=== PATIENT | male | born 1980 | race Caucasian/White ===

== ENCOUNTER → 2020-08-05 08:36 | Outpatient (CLI) | payer OTHER, SELFPAY ==
[2020-08-06 16:58] LABS: COVID19 Sendout Not Detected (Not Detect)
== END ==
PROVIDERS: Visit Provider Physician Assistant
DX: Z11.59 Encounter for screening for other viral diseases (principal)
CPT/HCPCS: 87635

== ENCOUNTER 2020-11-22 00:40 | Emergency (ER) | payer OTHER, SELFPAY ==
[2020-11-22 00:49] VITALS: BP 152/100; PULSE 56; RESP 17; TEMP 36.9; O2SAT 98; BMI 22.1
--- NOTE | 2020-11-22 01:08 | ED.HA ---
HPI - Headache General Chief Complaint: Headache Stated Complaint: hit head - pain for one week Time Seen by Provider: 11/22/20 00:48 Source: patient Mode of arrival: Ambulatory Limitations: no limitations History of Present Illness HPI Narrative: 40-year-old male who 1 week ago hit the right side of his head on a metal track of a garage door. He did not lose consciousness however did caused him to come dazed. Since that time his had worsening pain on the right side of his head. Has not tried anything for symptoms prior to arrival. Review of Systems Constitutional Constitutional: Denies fever(s) and Reports headache(s) Eyes Eyes: Denies change in vision ENT Ears, Nose, Mouth, and Throat: Denies vertigo, Denies dizziness, Denies otalgia, Reports headache(s), Denies neck pain and Denies sore throat Cardiovascular Cardiovascular: Denies chest pain and Denies dyspnea Respiratory Respiratory: Denies dyspnea Musculoskeletal Musculoskeletal: Denies neck pain Integumentary/Breasts Skin/Breast: Denies rash Neurologic Neurologic: Denies confusion, Denies vertigo, Denies dizziness and Reports headache(s) Psychiatric Psychiatric: Denies confusion Hematologic/Lymphatic On Anticoagulants: No Allergic/Immunologic Allergic/Immunologic: Denies urticaria Patient History Medical History Healthy adult Social History Smoking Status: Current every day smoker Smoking Status: Current every day smoker Substance Use Type: marijuana Exam Initial Vital Signs Initial Vital Signs: Vital Signs Temperature 98.5 F 11/22/20 00:49 Pulse Rate 56 L 11/22/20 00:49 Respiratory Rate 17 11/22/20 00:49 Blood Pressure 152/100 H 11/22/20 00:49 Pulse Oximetry 98 11/22/20 00:49 Const General: cooperative and comfortable Limitations: mental status not altered HENMT Head: normal to inspection and normocephalic Ears: external ears normal, TM's normal bilaterally, EAC's normal and mastoids normal Nose: external nose normal Face and sinus: normal facial exam Mouth: oral mucosae normal Teeth and gingiva: poor dentition Skin Lesions: no lesions Rashes: no rashes Neuro General: patient alert and patient awake Cognition: normal cognition Speech: speech normal Extrem General: capillary refill normal Psych Appearance: grossly normal and well kempt Course Vital Signs Vital signs: Vital Signs - 8 hr 11/22/20 00:49 11/22/20 01:23 Temperature 98.5 F Pulse Rate 56 L 58 L Respiratory Rate 17 17 Blood Pressure 152/100 H 148/99 H Pulse Oximetry 98 99 MDM - Headache MDM Narrative Medical decision making narrative: Patient's physical exam is unremarkable. Afebrile. Low suspicion for intracranial bleed or skull fracture. Discussed this with the patient. We did discuss the can take Tylenol at home which he states he does not like to do. He has no restrictions on his activity. He is given return precautions. He expressed understanding and agreement. Discharge Plan Departure Patient Disposition: Home Clinical Impression: Headache, Closed head injury, Concussion Instructions: Concussion Activity Restrictions/Additional Instructions: I do recommend that you take Tylenol and/or ibuprofen as needed for any headache. Contact your primary provider for follow-up. Return to the emergency department for any new or worsening symptoms Referrals: Miscellaneous,[facility] [Primary Care Provider] -
[2020-11-22 01:23] VITALS: BP 148/99; PULSE 58; RESP 17; O2SAT 99
== END 2020-11-22 01:24 | disposition home or self-care (01) ==
PROVIDERS: Emergency Provider Emergency Medicine
DX: S06.0X0A Concussion without loss of consciousness, initial encounter (principal); R51.9 Headache, unspecified; W22.8XXA Striking against or struck by other objects, initial encounter; Y99.0 Civilian activity done for income or pay
CPT/HCPCS: 99281

== ENCOUNTER 2021-04-03 12:46 | Emergency (ER) | payer SELFPAY ==
--- NOTE | 2021-04-03 12:59 | ED_ITS ---
HPI - Dental/Oral General Chief complaint: Dental/Oral Stated complaint: gland so swollen touching jaw bone, cyst on chin Time Seen by Provider: 04/03/21 12:51 Source: patient Mode of arrival: Ambulatory Limitations: no limitations History of Present Illness HPI Narrative: 40-year-old male smoker with no significant medical history presents with a chief complaint of a painful ?bump ?under the from this [place] and another under that left angle of his jaw. He states has been there for the past few days and are tender to palpate. He denies any fever or chills. He denies recent upper respiratory infection such as runny nose, sore throat or cough. He denies any difficulty swelling. He denies any obvious dental problem, draining abscess or tooth pain. He denies any trauma or injury. He denies other symptoms such as dizziness, weakness or lightheadedness. He is otherwise well and free of complaint Onset (ago): day(s) Duration: constant Relieving factors: nothing Treatment prior to arrival: none Related Data Previous Rx's Medication Instructions Recorded amoxicillin-pot clavulanate 1 tab PO BID #20 tab 04/03/21 [Augmentin] Review of Systems Constitutional Constitutional: Denies chills, Denies fatigue, Denies fever(s), Denies frequent falls, Denies lethargy and Denies weakness Eyes Eyes: Denies change in vision, Denies eye discharge, Denies irritation and Denies loss of vision ENT Ears, Nose, Mouth, and Throat: Denies change in voice, Denies dizziness, Denies neck pain, Denies sore throat and Denies throat swelling Cardiovascular Cardiovascular: Denies chest pain, Denies irregular heart rhythm, Denies lightheadedness, Denies palpitations, Denies dyspnea, Denies dyspnea on exertion and Denies orthopnea Respiratory Respiratory: Denies cough, Denies dyspnea, Denies dyspnea on exertion and Denies wheezing Gastrointestinal Gastrointestinal: Denies abdominal pain, Denies change in bowel habits, Denies diarrhea, Denies nausea and Denies vomiting Musculoskeletal Musculoskeletal: Denies neck pain and Denies numbness Integumentary/Breasts Skin/Breast: Denies pruritus, Denies erythema, Denies rash and Denies wounds Neurologic Neurologic: Denies behavioral changes, Denies confusion, Denies dizziness, Denies frequent falls, Denies loss of vision, Denies numbness and Denies weakness Psychiatric Psychiatric: Denies anxiety, Denies behavioral changes, Denies confusion, Denies depression, Denies homicidal ideation and Denies suicidal ideation Endocrine Endocrine: Denies fatigue, Denies flushing and Denies palpitations Hematologic/Lymphatic Hematologic/Lymphatic: Denies easy bruising and Reports lymphadenopathy Allergic/Immunologic Allergic/Immunologic: Denies urticaria, Denies throat swelling and Denies wheezing Patient History Medical History Healthy adult Social History Smoking Status: Current every day smoker Smoking Status: Current every day smoker Substance Use Type: marijuana Exam Narrative Exam Narrative: GEN: AOx3 and in mild distress EYES: Pupils are equal, round, and reactive to light and accommodation. Extraoccular muscles are intact bilaterally. There is no subconjunctival hemorrhage or exudate. ENT: Poor dentition throughout, no obvious dental fracture, reproducible pain or swelling to suggest abscess. There is a tender node versus submental as gland in the midline anteriorly as well as a tender anterior cervical lymph node versus salivary gland at that inferior edge of left angle of jaw. There is no fluctuance, erythema or warmth. It is freely movable and approximately 1 x 1 cm. CHEST: Lungs are clear to auscultation bilaterally and free of wheezes, rales, or rhonchi. Heart rate is regular rhythm, there are no murmurs, clicks, rubs, or gallops. There is no chest wall tenderness. ABD: Abdomen is soft and nontender. There is no guarding or rebound. Bowel sounds are normal in all 4 quadrants. There is no mass or organomegaly. EXT: Full painless ROM of all extremities with no loss of sensation or strength. SKIN: Warm, pink, and dry. No erythema or rash Initial Vital Signs Initial Vital Signs: Vital Signs Temperature 98.5 F 04/03/21 13:03 Pulse Rate 58 L 04/03/21 13:03 Respiratory Rate 18 04/03/21 13:03 Blood Pressure 150/96 H 04/03/21 13:03 Pulse Oximetry 99 04/03/21 13:03 Course Vital Signs Vital signs: Vital Signs - 8 hr 04/03/21 13:03 Temperature 98.5 F Pulse Rate 58 L Respiratory Rate 18 Blood Pressure 150/96 H Pulse Oximetry 99 MDM - Dental/Oral MDM Narrative Medical decision making narrative: Multiple etiologies for patient's symptoms considered including: [Reactive lymphadenopathy versus sialoadenitis versus other] Patient's symptoms improved over duration of stay with above-stated therapies. Findings and discharge diagnosis discussed with patient/family followed by verbalization of understanding Return precautions discussed with patient/family whom verbalize understanding. Discharge Plan Departure Patient Disposition: Home Clinical Impression: Lymphadenopathy of left cervical region Instructions: Parotitis Activity Restrictions/Additional Instructions: *You have been diagnosed with [painful lump under left side of jaw, possibly reactive lymphadenopathy versus a clogged saliva gland] *What to do: *Please continue to take your regular medications as directed. [x ] New medication prescriptions sent to your pharmacy: [[facility] in [place] ] [ ] New medication written as a paper prescription [ ] No new medications given *Please follow up with your primary care provider in 2-3 days, call for an appointment. Let them know you were seen in the Emergency Department and that we ask that you be seen in follow up. We will electronically transmit a record of today's note if your PCP is in our system *If you do not have a primary care provider please contact the [facility] Resource line at [phone]. They will ask some questions about your medical history and help get you set up with a doctor in the community. *Return to Emergency Department if you should have any new, worsening or concerning symptoms, such as [fever greater than 101 F, shaking chills, worsening pain, persistent vomiting or other bothersome symptoms] Prescriptions: New amoxicillin-pot clavulanate [Augmentin] 875-125 mg tablet 1 tab PO BID Qty: 20 RF: 0
[2021-04-03 13:03] VITALS: BP 150/96; PULSE 58; RESP 18; TEMP 36.9; O2SAT 99; BMI 22.1
--- NOTE | 2021-04-03 13:06 | PC.NURSE ---
pain along left jaw line and under chin.
== END 2021-04-03 13:06 | disposition home or self-care (01) ==
PROVIDERS: Emergency Provider Emergency Medicine
DX: R59.0 Localized enlarged lymph nodes (principal)
CPT/HCPCS: 99281

== ENCOUNTER 2024-08-07 11:12 | Emergency (ER) | payer SELFPAY ==
[2024-08-07 11:15] VITALS: BP 166/92; PULSE 48; RESP 20; TEMP 36.8; O2SAT 99; BMI 24.2
--- NOTE | 2024-08-07 11:31 | ED_ITS ---
HPI - Dental/Oral General Chief complaint: Dental/Oral Stated complaint: severe mouth pain right sided Time Seen by Provider: 08/07/24 11:25 Source: patient Mode of arrival: Ambulatory History of Present Illness HPI Narrative: Patient is a 42-year-old male no significant past medical history presents from home for evaluation of right-sided lower jaw/neck pain. Has been ongoing and persistent for the past several weeks, states that he did have teeth extracted approximately 2 months ago, called his primary care doctor due to persistent pain, was prescribed antibiotics but has not picked this up yet. Was instructed come into the ED for further evaluation treatment. Patient is stating that there is pain to his right submandibular/dental region/right neck pain. He denies any difficulty swallowing no difficulty breathing no trismus no voice change no stridor no muffled voice. Has been taking hydrocodone but has had persistent pain. He denies any visual disturbances. No trauma no falls not on any blood thinner Related Data Home Medications Medication Instructions Recorded Confirmed No Known Home Medications 04/30/21 Allergies Allergy/AdvReac Type Severity Reaction Status Date / Time No Known Drug Allergies Allergy Verified 08/07/24 11:23 Review of Systems Review of Systems Narrative: General: Denies fever, chills, weight loss HEENT: Denies headache, eye drainage, eye irritation, head trauma, sore throat, voice change, positive for right dental pain, right neck pain Cardiovascular: Denies any chest pain, palpitations, shortness of breath, tachycardia Respiratory: Denies any shortness of breath, cough, wheeze, stridor GI/: Denies any abdominal pain, nausea, vomiting, diarrhea, bright red blood per rectum, melanotic stools, urinary frequency, urinary retention, dysuria, hematuria MSK: Denies any joint pain, muscle pains, swelling Skin: Denies any rashes, lesions, discoloration Neuro: Denies any headache, lightheadedness, dizziness, fainting, weakness Psych: Denies SI/HI Patient History Medical History Healthy adult Social History Smoking Status: Current every day smoker Smoking Status: Current every day smoker tobacco type: cigarettes alcohol intake frequency: other Substance Use Type: marijuana Exam Narrative Exam Narrative: General: Cooperative, comfortable, well-developed, not in acute distress HEENT: Normocephalic, atraumatic, PERRLA, normal sclera, eyelids normal, patient is speaking full sentences protecting airway no voice changes no stridor no trismus, patient with poor dental caries, but no obvious Trent apical abscesses Neck: Active full range of motion, atraumatic Chest: Normal to inspection, negative crepitus, no overlying erythema ecchymosis Respiratory: Normal respiratory effort, not in acute respiratory distress, clear to auscultation bilaterally negative cough, wheeze, tachypnea, rhonchi, rales Cardiology: Regular rate rhythm negative gallop, murmur, rubs GI/: Normal to inspection, soft, nonrigid, no tenderness to palpation, exam deferred MSK: Full range of active range of motion of all 4 extremities, atraumatic Skin: No rashes lesions noted Neuro: Alert awake oriented x3, moves all 4 extremities spontaneously, cranial nerves intact, able to answer all questions appropriately follows commands appropriately Psych: Cooperative, negative suicidal or homicidal ideations Initial Vital Signs Initial Vital Signs: Vital Signs Temperature 98.2 F 08/07/24 11:15 Pulse Rate 48 L 08/07/24 11:15 Respiratory Rate 20 08/07/24 11:15 Blood Pressure 166/92 H 08/07/24 11:15 Pulse Oximetry 99 08/07/24 11:15 Oxygen Delivery Method Room Air 08/07/24 11:15 Course Orders Ordered: ED Orders 08/07/24 11:29 CT soft tissue neck w con Stat 08/07/24 11:40 BMP [Basic Metabolic Panel] Stat CBC Auto Diff [Complete Blood Count AUTO DIFF] Stat Discontinued Medications Morphine Sulfate (Morphine 4 Mg/Ml Inj) 4 mg INJ INTRA-OP ONE Stop: 08/07/24 11:30 Last Admin: 08/07/24 11:45 Dose: 4 mg Documented By: MPO Vital Signs Vital signs: Vital Signs - 8 hr 08/07/24 11:15 Temperature 98.2 F Pulse Rate 48 L Respiratory Rate 20 Blood Pressure 166/92 H Pulse Oximetry 99 Oxygen Delivery Method Room Air MDM - Dental/Oral Differential Diagnosis Differential diagnosis: Likely gingival abscess, dental caries, toothache and other (Sabino's, electrolyte abnormality) Lab Data 08/07/24 11:40 08/07/24 11:40 Labs: Lab Results 08/07/24 Range/Units 11:40 WBC 7.0 (4.5-11.0) X10^3/uL RBC 5.59 (4.5-5.9) X10^6/uL Hgb 15.0 (13.5-17.5) g/dL Hct 45.2 (41-53) % MCV 81.0 (80-100) fL MCH 26.8 (26-34) PG MCHC 33.1 (30-36) % RDW 13.3 (11.6-14.8) % Plt Count 221 (150-400) X10^3/uL Neut % (Auto) 65.2 (50-75) % Lymph % (Auto) 22.2 L (25-40) % Oliver % (Auto) 9.0 (3-14) % Eos % (Auto) 2.2 (2-4) % Baso % (Auto) 1.4 (0-2) % Neut # (Auto) 4600 (8587-6945) /uL Lymph # (Auto) 1500 (4150-4582) /uL Oliver # (Auto) 600 (0-900) /uL Eos # (Auto) 200 (0-450) /uL Baso # (Auto) 100 (0-100) /uL Sodium 137 (137-145) mmol/L Potassium 4.2 (3.4-5.1) mmol/L Chloride 104 (98-107) mmol/L Carbon Dioxide 24 (22-32) mmol/L BUN 9 (9-20) mg/dL Creatinine 0.82 (0.66-1.25) mg/dL Estimated GFR > 60 (>60) mL/min BUN/Creatinine Ratio 11.0 (6-22) Glucose 98 (70-100) mg/dL Calcium 9.3 (8.4-10.2) mg/dL Imaging Data CT soft tissue neck: Radiologist's Impression: PROCEDURE: CT SOFT TISSUE NECK W CON INDICATIONS: left sided neck and submandibular pain (please evaluate for Sabino's angina) TECHNIQUE: After the administration of intravenous contrast, 3.0 mm axial sections acquired from the sella to the aortic arch. Additional oblique axial 3.0 mm sections acquired through the pharynx. 3 mm thick coronal and sagittal reformats were generated. For radiation dose reduction, the following was used: automated exposure control. COMPARISON: None. FINDINGS: Image quality: Excellent. Lymph nodes: No enlarged lymph nodes seen throughout the neck. Vessels: Visualized vasculature appears patent. Neck spaces: Generalized soft tissue swelling can be seen of the submandibular region, left worse than right. No findings of soft tissue gas can be seen. No focal fluid collections are seen to suggest abscess. The oropharynx, nasopharynx, and pharynx demonstrate no mucosal lesions. The vocal cords, false vocal cords, pyriform sinuses, epiglottis, vallecula, and tongue base all appear normal. Glands: The parotid and submandibular glands appear normal. Thyroid gland demonstrates no significant abnormality. Miscellaneous: Visualized brain and orbits appear normal. Lung apices appear clear. Superficial soft tissues appear normal. Bones: No suspicious bony lesions. Visualized sinuses and mastoids appear unremarkable. Relatively poor dentition is seen. Mild cervical spine degenerative change can be seen. IMPRESSION: Generalized submandibular soft tissue swelling is seen, without findings of soft tissue abscess or gas. [facility] Narrative Medical decision making narrative: Patient is a 44-year-old male no significant past history presents with complaint of dental pain pain, has been ongoing and persistent since he had tooth extractions approximately 2 months ago, did call his primary care doctor as well as his dentist they did give him medications including antibiotics but he has not had time to pick it up yet, was instructed come into the ED for evaluation treatment. On exam patient with dental caries but no obvious periapical abscesses within mouth, he is speaking full sentences protecting airway nontoxic-appearing no voice change no stridor. CT scan was obtained of the neck did not show any soft tissue abscess or gas concerning for Sabino's, patient without any leukocytosis, significant improvement of pain after administration medication here, patient already with prescription for antibiotics, informed him to pick this up and take them as prescribed and follow up with dentist and primary care doctor. Had re-evaluation patient is still speaking full sentences protecting airway no voice changes no stridor no trismus, strict return precautions were given he verbalized understanding of these and agrees to being discharged home with outpatient follow up. Discharge Plan Departure Patient Disposition: Home Clinical Impression: Pain, dental Activity Restrictions/Additional Instructions: Please follow-up with your dentist and your primary care doctor, please sweet pickle maker your antibiotics and take them as prescribed Please read the discharge instructions sheet carefully and bring all papers to all doctor follow-up visits, as it may contain information that your doctor may want to see. Disease processes change and evolve, if your symptoms worsen or if you develop any new symptoms that are concerning to you please return for evaluation. Your evaluation today does not show any evidence of any life- threatening/serious illnesses requiring admission to the hospital or surgery. Please follow-up with your doctor for re-evaluation in approximately 1 day. Seek immediate medical attention for any worrisome symptoms. Prescriptions: No Action No Known Home Medications Stand Alone Forms: Patient Portal/API
[2024-08-07] MEDS: MORPHINE 4 MG/ML INJ INJ (11:45)
[2024-08-07 11:46] LABS: Add Manual Diff / Slide Review NO; Basophils Absolute Auto 100 /uL (0-100); Basophils Percent Auto 1.4 % (0-2); Eosinophils Absolute Auto 200 /uL (0-450); Eosinophils Percent Auto 2.2 % (2-4); Hematocrit 45.2 % (41-53); Lymphocytes Absolute Auto 1500 /uL (1100-4500); Lymphocytes Percent Auto 22.2 % (25-40); Mean Corpuscular HGB Conc 33.1 % (30-36); Mean Corpuscular Hemoglobin 26.8 PG (26-34); Monocytes Absolute Auto 600 /uL (0-900); Neutrophils Absolute Auto 4600 /uL (1500-7000); Neutrophils Percent Auto 65.2 % (50-75); Platelet Count 221 X10^3/uL (150-400); Red Blood Cell Count 5.59 X10^6/uL (4.5-5.9); Red Cell Distribution Width 13.3 % (11.6-14.8)
[2024-08-07 11:58] LABS: Blood Urea Nitrogen 9 mg/dL (9-20); Calcium 9.3 mg/dL (8.4-10.2); Carbon Dioxide 24 mmol/L (22-32); Chloride 104 mmol/L (98-107); Estimated Glomerular Filt Rate > 60 mL/min (>60); Glucose 98 mg/dL (70-100); Potassium 4.2 mmol/L (3.4-5.1); Sodium 137 mmol/L (137-145)
[2024-08-07 12:00] LABS: HEMOLYSIS 52 (0-50)
[2024-08-07 12:22] VITALS: BP 154/80; PULSE 50; RESP 20; TEMP 37; O2SAT 100
== END 2024-08-07 12:24 | disposition home or self-care (01) ==
PROVIDERS: Emergency Provider Student in an Organized Health Care Education/Training Program
DX: K08.89 Other specified disorders of teeth and supporting structures (principal); M54.2 Cervicalgia
CPT/HCPCS: 70491; 80048; 85025; 96374; 99284; J2270; Q9967

== ENCOUNTER 2025-01-18 12:56 | Emergency (ER) | payer OTHER, SELFPAY ==
[2025-01-18 13:10] VITALS: BP 137/92; PULSE 57; RESP 16; TEMP 36.7; O2SAT 97; BMI 24.2
--- NOTE | 2025-01-18 13:10 | DI.RAD.S_ITS ---
PROCEDURE: XR KNEE LT 3V INDICATIONS: pain TECHNIQUE: 3 views of the knee were acquired. COMPARISON: None. FINDINGS: Bones: No fractures or dislocations. No suspicious bony lesions. Soft tissues: No joint effusion. No suspicious soft tissue calcifications. IMPRESSION: No acute bony abnormality or significant effusion. Dictated by: Kush Mares M.D. on 01/18/2025 at 14:11 Approved by: Kush Mares M.D. on 01/18/2025 at 14:12
--- NOTE | 2025-01-18 14:41 | PC.NURSE ---
Left knee pain w/o deformity. 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 Pt states he stood up and took a couple of steps and felt intense pain. States it has not gotten better. States while he has been in the ER it has gotten worse. Pt has not taken any OTC medications for their pain
--- NOTE | 2025-01-18 14:44 | ED.LOWEXIN ---
HPI - Extremity Injury (Lower) <Rosy Espinosa PA-C - Last Filed: 01/18/25 19:42> General Chief Complaint: Extremity Injury, Lower Stated Complaint: Left knee pain Time Seen by Provider: 01/18/25 14:43 Source: patient Mode of arrival: EMS History of Present Illness HPI Narrative: Mr. Niño is a pleasant 44-year-old male who denies any past medical problems who presents to the emergency department for left knee pain via EMS x3 days. 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 Pain is worse with flexion-extension, weight-bearing, and is on the medial aspect of the left knee. No direct trauma to the knee, no redness, no fevers, no chills. No medications prior to arrival. Related Data Previous Rx's Medication Instructions Recorded naproxen 500 mg tablet 500 mg PO BID PRN pain #20 tabs 01/18/25 Allergies Allergy/AdvReac Type Severity Reaction Status Date / Time No Known Drug Allergies Allergy Verified 01/18/25 13:14 Review of Systems <Rosy Espinosa PA-C - Last Filed: 01/18/25 19:42> Review of Systems ROS Unobtainable: All systems reviewed & are unremarkable except as noted in HPI and below Patient History <Rosy Espinosa PA-C - Last Filed: 01/18/25 19:42> Medical History Healthy adult Social History Smoking Status: Current every day smoker Smoking Status: Current every day smoker tobacco type: cigarettes alcohol intake frequency: other Exam <Rosy Espinosa PA-C - Last Filed: 01/18/25 19:42> Narrative Exam Narrative: GENERAL: 44 year old patient appears stated age. Well-developed patient, in no acute distress. HEAD: Atraumatic. Normocephalic. CARDIOVASCULAR: Regular rate RESPIRATORY: ?Nonlabored respirations. ?Speaking in clear, full sentences. EXTREMITIES: Tenderness to palpation of medial left anterior knee. There is pain in the medial aspect of the knee with flexion and extension. No reproducible joint laxity. No erythema, obvious edema or deformities. No tenderness to palpation of left foot, hanna, thigh. Both knee flexion and extension strength are still intact but decreased compared to the right leg. He is strong DP and PT pulses and brisk capillary refill. NEURO: AOx3. ?Clear speech. ?Sensation intact to light touch on bilateral lower extremities. SKIN: No rash or erythema of visible areas Initial Vital Signs Initial Vital Signs: Vital Signs Temperature 98.1 F 01/18/25 13:10 Pulse Rate 57 L 01/18/25 13:10 Respiratory Rate 16 01/18/25 13:10 Blood Pressure 137/92 H 01/18/25 13:10 Pulse Oximetry 97 01/18/25 13:10 Oxygen Delivery Method Room Air 01/18/25 13:10 <Kellen Rocha MD - Last Filed: 01/21/25 05:24> Initial Vital Signs Initial Vital Signs: Vital Signs Temperature 98.1 F 01/18/25 13:10 Pulse Rate 57 L 01/18/25 13:10 Respiratory Rate 16 01/18/25 13:10 Blood Pressure 137/92 H 01/18/25 13:10 Pulse Oximetry 97 01/18/25 13:10 Oxygen Delivery Method Room Air 01/18/25 13:10 Course <Rosy Espinosa PA-C - Last Filed: 01/18/25 19:42> Orders Ordered: Discontinued Medications Hydrocodone Bitart/Acetaminophen (Hydrocodone/Acet 5/325 Tablet) 1 tab PO NOW ONE Stop: 01/18/25 15:14 Last Admin: 01/18/25 15:27 Dose: 1 tab Documented By: ISABELLA Ketorolac Tromethamine (Ketorolac 30 Mg/Ml Vial) 30 mg IM NOW ONE Stop: 01/18/25 15:14 Last Admin: 01/18/25 15:27 Dose: 30 mg Documented By: ISABELLA Vital Signs Vital signs: Vital Signs - 8 hr 01/18/25 13:10 01/18/25 16:30 Temperature 98.1 F 98.3 F Pulse Rate 57 L 84 Respiratory Rate 16 16 Blood Pressure 137/92 H 132/89 Pulse Oximetry 97 97 Oxygen Delivery Method Room Air Room Air <Kellen Rocha MD - Last Filed: 01/21/25 05:24> Orders Ordered: Discontinued Medications Hydrocodone Bitart/Acetaminophen (Hydrocodone/Acet 5/325 Tablet) 1 tab PO NOW ONE Stop: 01/18/25 15:14 Last Admin: 01/18/25 15:27 Dose: 1 tab Documented By: ISABELLA Ketorolac Tromethamine (Ketorolac 30 Mg/Ml Vial) 30 mg IM NOW ONE Stop: 01/18/25 15:14 Last Admin: 01/18/25 15:27 Dose: 30 mg Documented By: ISABELLA Vital Signs Vital signs: Vital Signs - 8 hr 01/18/25 13:10 01/18/25 16:30 Temperature 98.1 F 98.3 F Pulse Rate 57 L 84 Respiratory Rate 16 16 Blood Pressure 137/92 H 132/89 Pulse Oximetry 97 97 Oxygen Delivery Method Room Air Room Air MDM - Extremity Injury (Lower) <Rosy Espinosa PA-C - Last Filed: 01/18/25 19:42> Medical Records Attestation: I reviewed the patient's medical records. Imaging Data Left Knee X-Ray: Radiologist's Impression: PROCEDURE: XR KNEE LT 3V INDICATIONS: pain TECHNIQUE: 3 views of the knee were acquired. COMPARISON: None. FINDINGS: Bones: No fractures or dislocations. No suspicious bony lesions. Soft tissues: No joint effusion. No suspicious soft tissue calcifications. IMPRESSION: No acute bony abnormality or significant effusion. [facility] Narrative Medical decision making narrative: 44-year-old male who denies any past medical problems who presents to the emergency department for left knee pain via EMS x3 days. Differential diagnosis includes but is not limited to traumatic bursitis, sprain, strain, fracture, dislocation, etc. On exam patient is in no acute distress, nontoxic appearing, vital signs appropriate. He has tenderness to palpation of the medial aspect of the left knee and pain in his area with flexion-extension but no obvious deformities or skin changes. Lower extremities are neurovascularly intact. X-ray left knee was obtained revealing no acute abnormality or significant effusion. He was placed into a left knee Kyle wrap, provided with crutches, given a dose of [place] and Toradol with improvement his pain. Discussed that I do suspect soft tissue injury from direct trauma crawling on knee and that he should follow up with Orthopedics for further evaluation. Recommended rice therapy, naproxen/acetaminophen for pain. ED return precautions discussed. He verbalized understanding of all information agreeable with the plan. He is stable for discharge home. Discharge Plan Departure Patient Disposition: Home Clinical Impression: Left medial knee pain Left knee sprain Qualifiers: Encounter type: initial encounter Involved ligament of knee: unspecified ligament Qualified Code(s): S83.92XA - Sprain of unspecified site of left knee, initial encounter Instructions: DI for Knee Pain Activity Restrictions/Additional Instructions: Thank you for coming to the emergency department. Today you were evaluated for left knee pain. The x-ray does not show any broken or dislocated bones however x-rays do not tell us about importance soft tissue injuries. Is very important to follow up with your primary care doctor and an orthopedic doctor for further evaluation. You may call to schedule an appointment with [facility] at [phone] Hannon or one of the other providers for further evaluation of your left knee pain/injury. Please use RICE therapy for your pain in addition to naproxen/acetaminophen. Rest the painful area. Ice the area of pain/swelling for at least 15 minutes, 4x a day. Compress the area of swelling using a brace, wrap, or splint if applied. Elevate the painful or swollen extremity by supporting it above the level of the heart with pillows when sitting or laying. Please follow up with your primary care doctor within the next 2-3 days for ER follow-up. (If you do not have a PCP you can call [phone]. ?to schedule an appointment with an [facility] Primary Care Provider) IF YOU DEVELOP ANY NEW OR WORSENING SYMPTOMS, RETURN TO THE ER! Please read the attached instructions, they highlight more specific treatments and interventions for you at home. Thank you for letting me participate in your care, Rosy Espinosa PA-C Prescriptions: New naproxen 500 mg tablet 500 mg PO BID PRN (Reason: pain) Qty: 20 0RF Stand Alone Forms: Patient Portal/API/Survey ED Sign-out <Kellen Rocha MD - Last Filed: 01/21/25 05:24> Cosign ED Attending Suzieature Attestation: I was immediately available in the department for consultation throughout this patient's visit. Kellen Rocha MD
[2025-01-18] MEDS: HYDROCODONE/ACET 5/325 TABLET 1 TAB PO (15:27)
[2025-01-18] MEDS: KETOROLAC 30 MG/ML VIAL IM (15:27)
[2025-01-18 16:30] VITALS: BP 132/89; PULSE 84; RESP 16; TEMP 36.8; O2SAT 97
== END 2025-01-18 16:32 | disposition home or self-care (01) ==
PROVIDERS: Emergency Provider Physician Assistant
DX: S83.92XA Sprain of unspecified site of left knee, initial encounter (principal); M25.562 Pain in left knee; X58.XXXA Exposure to other specified factors, initial encounter
CPT/HCPCS: 73562; 96372; 99283; J1885